=== PATIENT | female | born 1985 | race Caucasian/White ===

== ENCOUNTER 2023-10-05 09:36 | Emergency (ER) | payer MEDICAID ==
[~2023-10-05] VITALS: Ht 172.7 cm; Wt 160.6 kg
[2023-10-05 09:49] VITALS: BP_SYST 142; PULSE 88; RESP 17; TEMP 98.2; O2SAT 97
[2023-10-05] MEDS: IBUPROFEN 800 MG TABLET PO ONE (10:29)
[2023-10-05] MEDS: MORPHINE SULFATE 10 MG/ML VIAL IM ONE (11:51)
[2023-10-05] MEDS: ONDANSETRON 4 MG ODT TAB PO ONE (11:52)
[2023-10-05] MEDS: DIPHENHYDRAMINE INJ 50 MG/ML VIAL IM ONE (11:52)
[2023-10-05] MEDS ORDERED: HYDR-3927 PO (12:13)
[2023-10-05] MEDS ORDERED: IBUP-1971 PO (12:13)
[2023-10-05 13:59] VITALS: BP_SYST 142; PULSE 88; RESP 17; TEMP 98.2; O2SAT 97
== END 2023-10-05 14:00 | disposition home or self-care (01) ==
LOC: SED 09:36
DX: M25.551 Pain in right hip (principal); R26.89 Other abnormalities of gait and mobility; E66.9 Obesity, unspecified; Z88.1 Allergy status to other antibiotic agents; Z79.899 Other long term (current) drug therapy; Z68.43 Body mass index [BMI] 50.0-59.9, adult
CPT/HCPCS: 99284; 72170; 73502; 81025; 96372; Q0162; J1200; J2270